=== PATIENT | male | born 1990 | race African-American/Black ===

== ENCOUNTER 2019-10-14 22:44 | Emergency (ER) | payer OTHER ==
[~2019-10-14] VITALS: Ht 175.3 cm; Wt 65.9 kg
[2019-10-15] MEDS ORDERED: IBUPROFEN 400 MG TABLET PO ONE (01:15)
[2019-10-15] MEDS ORDERED: ACETAMINOPHEN 325 MG TABLET PO ONE (01:15)
[2019-10-15 01:18] VITALS: BP 118/70
== END 2019-10-15 01:46 | disposition home or self-care (01) ==
LOC: EMS 22:44
DX: S16.9XXA Unspecified injury of muscle, fascia and tendon at neck level, initial encounter (principal); Z91.013 Allergy to seafood; V49.9XXA Car occupant (driver) (passenger) injured in unspecified traffic accident, initial encounter; W22.19XA Striking against or struck by other automobile airbag, initial encounter; Y93.89 Activity, other specified; Y92.488 Other paved roadways as the place of occurrence of the external cause; Y99.8 Other external cause status